=== PATIENT | male | born 1940 ===

== ENCOUNTER → 2017-02-27 | Outpatient (CLI) | payer MEDICARE, BC ==
[~2017-02-27] MED LIST: COUMADIN1 MG PO; COUMADIN6 MG PO; DOK PLUS TABLE1 EACH PO; GAVISCON1 TAB PO; HUMALOG100 UNIT/1 SUBCUT; LANTUS100 UNIT/1 SQ; LANTUS100 UNIT/1 SUBCUT; LASIX40 MG PO; LUTEIN-ZEAXANT1 EACH PO; MAGNESIUM OXID400 MG PO; PRAVACHOL80 MG PO; TOPROL XL25 MG PO; TUMS500 MG PO; TYLENOL500 MG PO; ULTRAM50 MG PO; VITAMIN D35000 UNIT PO
== END | disposition short-term general hospital (02) ==
LOC: CLORTH 10:31
DX: M17.11 Unilateral primary osteoarthritis, right knee (principal); M25.562 Pain in left knee; Z96.652 Presence of left artificial knee joint